=== PATIENT | female | born 1930 | race Hispanic/Latino ===

== ENCOUNTER 2017-11-05 06:17 | Day surgery (SDC) | payer MEDICARE ==
[2016-07-28 13:28] VITALS: PULSE 79
[2017-11-02 09:20] VITALS: BMI 30.2
[2017-11-05] MEDS ORDERED: Lidocaine 2% Inj (20ml) ONE (06:39)
[2017-11-05] MEDS ORDERED: Midazolam 2 MG/2 ML VIAL ONE ×2 (06:40→07:12)
[2017-11-05] MEDS ORDERED: Phenylephrine 10 mg/ml Inj ONE (06:40)
[2017-11-05] MEDS ORDERED: Iodixanol 320 MG/ML 100 ML BOTTLE IV ONE (06:42)
[2017-11-05] MEDS ORDERED: Iohexol 350mgl/ml 50 ML ONE (06:42)
[2017-11-05] MEDS ORDERED: Iodixanol 320 MG/ML 200 ML BOTTLE IV ONE (06:42)
[2017-11-05] MEDS ORDERED: Nitroglycerin 50mg in D5W 50 MG/250 ML BOTTLE IV ONE (06:42)
[2017-11-05 06:46] LABS: BASO # 0.03 K/mm3 (0.0-2.0); BASO % 0.3 % (0.0-3.0); EOS # 0.4 (0.0-0.7); GRAN # 7.47 (1.4-6.5); GRAN % 69.8 % (50.0-68.0); HEMOGLOBIN 11.8 g/dL (12.0-16.0); LYMPH # 2.1 (1.2-3.4); LYMPH % 19.1 % (22.0-35.0); MEAN CELL VOLUME 81.9 fl (80.0-105.0); MEAN CORPUSCULAR HEMOGLOBIN 25.4 pg (25.0-35.0); MEAN PLATELET VOLUME 10.2 fl (7.0-11.0); MONO # 0.7 (0.1-0.6); MONO % 6.8 % (1.0-6.0); RBC 4.65 10^6/uL (3.5-6.1); RED CELL DISTRIBUTION WIDTH 15.5 % (11.5-14.5); WHITE BLOOD COUNT 10.7 10^3/ul (4.5-11.0)
[2017-11-05 07:00] LABS: CALCIUM 9.6 mg/dL (8.4-10.5)
[2017-11-05 07:07] LABS: INR 1.13 (0.93-1.08); PARTIAL THROMBOPLASTIN TIME 33.1 Seconds (25.1-36.5)
[2017-11-05] MEDS ORDERED: Sodium Chloride 0.9% 1,000 ML IV SCH (08:30)
[2017-11-05 08:33] VITALS: TEMP 97.7
--- NOTE | 2017-11-05 09:01 | CARDCATH ---
PROCEDURE DATE: 11/05/2017 HISTORY: The patient is a 87-year-old woman who presents with progressive exertional shortness of breath. She has a long history of COPD and has had multivessel PTCA in the past. In addition, the patient suffers from history of atrial fibrillation as well as hypercholesterolemia. She has been treated on Eliquis at home. The patient's stress test was abnormal. Because of this, cardiac catheterization was recommended. PROCEDURE Left heart catheterization with coronary arteriography and left ventriculogram. The right femoral artery was cannulated with a 6-[place] sheath. A long sheath was used because of her previous markedly tortuous descending aorta and iliac arteries. I performed moderate sedation. which included the presence of an independent trained observer that assisted in monitoring the patient's level of consciousness and physiologic status. After administration of Versed and fentanyl, my intra service time was 15 minutes. The findings on catheterization revealed a left ventricle that contracted normally. Estimated ejection fraction of 60%. Her coronary anatomy revealed a right dominant circulation. The RCA revealed a long stent that was placed previously. There was diffuse intimal irregularities without critical lesions. The left main artery was unremarkable. The LAD and diagonal vessels revealed intimal irregularities without critical lesions. There is a 50% stenosis in the third diagonal vessel, which was noted. The circumflex artery and obtuse marginal branch revealed diffuse atherosclerosis with no critical lesions. Angio-Seal was used to close the femoral artery site. The patient tolerated the procedure well. In summary, the procedure revealed normal LV function. Diffuse atherosclerosis throughout the coronary tree including a 50% stenosis in the ostium of the third diagonal vessel. The stents placed previously were patent. Given these findings, the patient's dyspnea cannot be explained by her cardiac and coronary artery disease. We will resume her Eliquis. Given these findings, we will pursue a pulmonary cause of her progressive dyspnea. Parish Adame MD
[2017-11-05 17:00] VITALS: BP 148/76; PULSE 70; RESP 20; O2SAT 95
--- NOTE | 2017-11-06 15:19 | CARD ---
APPROVED REPORT EKG Measurement Heart [id number] CA [id number] <Conclusion> Normal sinus rhythm Nonspecific ST and T wave abnormality Abnormal ECG
== END 2017-11-05 17:00 | disposition home or self-care (01) ==
LOC: CATH 06:17
PROVIDERS: ATTEND Internal Medicine Cardiovascular Disease
DX: I25.10 Atherosclerotic heart disease of native coronary artery without angina pectoris (principal); J44.9 Chronic obstructive pulmonary disease, unspecified; E78.00 Pure hypercholesterolemia, unspecified; I48.91 Unspecified atrial fibrillation; Z95.5 Presence of coronary angioplasty implant and graft
CPT/HCPCS: 36415; 80048; 85025; 85610; 85730; 86850; 86900; 93458; 99152; C1760; C1769; C2629; J1644; J2250; J3010; J7030; J7040; Q9966; Q9967 ×2